=== PATIENT | female | born 1990 | race Caucasian/White ===

== ENCOUNTER 2019-10-19 15:17 | Emergency (ER) | payer OTHER ==
[~2019-10-19] VITALS: Ht 162.6 cm; Wt 68.0 kg
[2019-10-19 15:41] VITALS: Ht 162.6 cm; Wt 68.0 kg
[2019-10-19 16:13] VITALS: BP 98/49
== END 2019-10-19 16:50 | disposition home or self-care (01) ==
LOC: ED 15:17
DX: F41.9 Anxiety disorder, unspecified (principal); R06.4 Hyperventilation
CPT/HCPCS: 82962